=== PATIENT | male | born 1965 | race Caucasian/White ===

== ENCOUNTER 2020-12-05 11:16 | Emergency (ER) | payer BC ==
[2020-12-05 11:39] VITALS: TEMP 98; BMI 25.9
[2020-12-05] MEDS ORDERED: KETOROLAC TROMETHAMINE 30 MG/1 ML VIAL IM ONE (11:49)
[2020-12-05] MEDS ORDERED: KETOROLAC TROMETHAMINE 30 MG/1 ML VIAL ONE (11:50)
[2020-12-05 12:49] VITALS: BP 115/74; PULSE 95
== END 2020-12-05 12:49 | disposition home or self-care (01) ==
LOC: JERFT 11:16 → JER 11:16 → JERFT 12:49
PROC: 3E0233Z Introduction of Anti-inflammatory into Muscle, Percutaneous Approach (ICD-10-PCS; principal; 2020-12-05)
DX: M25.512 Pain in left shoulder (principal)
CPT/HCPCS: 73030-TC-LT-FY; 99284-25